=== PATIENT | female | born 1940 | race Caucasian/White ===

== ENCOUNTER → 2021-07-05 | Day surgery (SDC) | payer MEDICARE ==
[~2021-07-05] VITALS: Ht 154.9 cm; Wt 68.0 kg
[~2021-07-05] MED LIST: AMLODIPINE BESY10 MG PO; OCUFLOX 0.3% 5 M5 ML OPH; PRED FORTE5 ML OP; TENORMIN50 MG PO
[2021-07-05 09:27] VITALS: BP 114/70
[2021-07-05 10:19] VITALS: BP 105/63
[2021-07-05 10:34] VITALS: BP 108/62
[2021-07-05 10:48] VITALS: BP 121/63
== END | disposition home or self-care (01) ==
LOC: SDC 06-30 12:30
PROVIDERS: ATTEND Ophthalmology
DX: H25.811 Combined forms of age-related cataract, right eye (principal); I10 Essential (primary) hypertension; Z98.890 Other specified postprocedural states; Z88.5 Allergy status to narcotic agent; Z88.8 Allergy status to other drugs, medicaments and biological substances; Z20.822 Contact with and (suspected) exposure to COVID-19; Z79.899 Other long term (current) drug therapy

== ENCOUNTER → 2021-10-11 | Day surgery (SDC) | payer MEDICARE ==
[2021-10-11 09:36] VITALS: BP 135/63
[2021-10-11 10:54] VITALS: BP 108/65
[2021-10-11 11:09] VITALS: BP 106/58
[2021-10-11 11:24] VITALS: BP 111/61
== END | disposition home or self-care (01) ==
LOC: SDC 10-05 13:15
PROVIDERS: ATTEND Ophthalmology
DX: H25.812 Combined forms of age-related cataract, left eye (principal); I10 Essential (primary) hypertension; Z88.5 Allergy status to narcotic agent; Z98.890 Other specified postprocedural states